=== PATIENT | female | born 1945 ===

== ENCOUNTER 2018-06-23 07:00 | Day surgery (SDC) | payer OTHER ==
[~2018-06-23] VITALS: Ht 152.4 cm; Wt 55.3 kg
[~2018-06-23 07:00] MED LIST: ALENDRONATE SOD70 MG PO; ATORVASTATIN CA20 MG PO; GLIPIZIDE10 MG PO; METFORMIN HCL1000 M1 PO; MIXED TOCOTRIE1 EACH PO; VIT D3 PO; WOMEN PO
[2018-06-24] MEDS ORDERED: OXYC1TAB9 PO (11:25)
== END 2018-06-24 08:00 | disposition home or self-care (01) ==
LOC: CIR.AMB 07:00 → SURG 08:15 → EDSTATUS 08:15 → O/R 11:22 → SURG 11:22 → CIR.AMB 06-24 08:00 → SURG 06-24 12:21 → O/R 06-24 12:21
DX: D12.8 Benign neoplasm of rectum (principal)